=== PATIENT | female | born 1970 | race African-American/Black ===

== ENCOUNTER 2017-07-20 13:20 | Inpatient (IN) | payer BC ==
[~2017-07-20] VITALS: Ht 175.3 cm; Wt 86.2 kg
[2017-07-20] MEDS ORDERED: Morphine Sulfate 4mg/ml Inj IVP ONE (14:00)
[2017-07-20 14:38] LABS: APPEARANCE,URINE SLIGHTLY CLOUDY; KETONES,URINE 2+ (NEGATIVE); LEUKOCYTE ESTERASE ,URINE 3+ (NEGATIVE); NITRITE,URINE NEGATIVE (NEGATIVE); PH,URINE 7 (4.5-8.0); PROTEIN,URINE 1+ (NEGATIVE); UROBILINOGEN,URINE NORMAL MG/DL (0.0-1.0)
[2017-07-20 14:54] LABS: BACTERIA,URINE MODERATE /HPF; SQUAMOUS EPITHELIAL CELL,UR FEW /LPF (NONE/OCC); WBC,URINE 20-30 /HPF (0 - 2)
[2017-07-20] MEDS ORDERED: Tubing IV Secondary IV ONE (14:54)
[2017-07-20 14:58] LABS: MEAN CORPUSCULAR HEMOGLOBIN 23.5 PG (27.0-31.0); MEAN CORPUSCULAR VOLUME 76 FL (80-99); MEAN PLATELET VOLUME 7.3 FL (6.5-10.1); PLATELET COUNT 432 K/UL (150-450); RED BLOOD COUNT 4.67 M/UL (4.20-5.40); RED CELL DISTRIBUTION WIDTH 18.1 % (11.6-14.8)
[2017-07-20 15:05] LABS: ALANINE AMINOTRANSFERASE 13 U/L (12-78); ALBUMIN/GLOBULIN RATIO 0.6 (1.0-2.7); ANION GAP 10 mmol/L (5-15); ASPARTATE AMINO TRANSFERASE 11 U/L (15-37); CALCIUM 9.7 MG/DL (8.5-10.1); CARBON DIOXIDE 26 MMOL/L (21-32); CHLORIDE 98 MMOL/L (98-107); CREATININE 0.9 MG/DL (0.55-1.30); GLOMERULAR FILTRATION RATE > 60 mL/min (>60); POTASSIUM 4.1 MMOL/L (3.5-5.1); SODIUM 134 MMOL/L (136-145); TOTAL PROTEIN 8.5 G/DL (6.4-8.2)
[2017-07-20 15:15] LABS: INR 1.1 (0.9-1.1)
[2017-07-20] MEDS ORDERED: Cefepime HCl 2 GM in NS 110 ML IV SCH (15:15)
[2017-07-20] MEDS ORDERED: NS 1000ml 2,600 ML IVLG ONE (15:15)
--- NOTE | 2017-07-20 15:24 | Emergency Room Report ---
History of Present Illness General Chief Complaint: Pelvic Pain Source: Patient Present Illness HPI This patient presents with left lower quadrant and periumbilical abdominal pain. The patient states that these symptoms have been going on for the last 4 days. She has been followed by Dr. Downing for uterine fibroids. She underwent a fibroid embolization on June 23 of this year. She also underwent a D&C earlier this month. She is unable to remember the exact date. She states that she had been doing well until the past 4 days. She states that she has developed left lower abdominal pain and in addition to night sweats. She states that typically in the past she has been able to use extra strength ibuprofen for pain but this has not controlled the pain in her left lower abdomen. She has had vaginal discharge. She denies a foul odor to the discharge. She denies vaginal bleeding. She denies dysuria or hematuria. She denies nausea or vomiting. She has no other complaints. Allergies: Coded Allergies: PENICILLINS (Verified Allergy, Unknown, 07/20/17) Patient History Past Medical History: none, see triage record Past Surgical History: other - fibroid embolization Social History: Denies: smoking, alcohol use, drug use Last Menstrual Period: none since 06/23/17 (fibroid embolization) Now: No Reviewed Nursing Documentation: PMH: Agreed, PSxH: Agreed Review of Systems All Other Systems: negative except mentioned in HPI Physical Exam Vital Signs Date Time Temp Pulse Resp B/P (MAP) Pulse Ox O2 Delivery O2 Flow Rate FiO2 07/20/17 13:26 98.2 103 18 133/74 100 Room Air Sp02 EP Interpretation: reviewed, normal General Appearance: no apparent distress, alert, GCS 15, non-toxic Head: normocephalic, atraumatic Eyes: bilateral eye normal inspection, bilateral eye PERRL ENT: hearing grossly normal, normal pharynx, no angioedema, normal voice Neck: full range of motion, supple/symm/no masses Respiratory: chest non-tender, lungs clear, normal breath sounds, speaking full sentences Cardiovascular #1: regular rate, rhythm, no edema Gastrointestinal: normal bowel sounds, soft, tenderness - exquistely TTP in the LLQ Rectal: deferred Musculoskeletal: back normal, gait/station normal, normal range of motion, non- tender Neurologic: alert, oriented x3, responsive, motor strength/tone normal, sensory intact, speech normal Psychiatric: judgement/insight normal, memory normal, mood/affect normal, no suicidal/homicidal ideation Skin: normal color, no rash, warm/dry, well hydrated Medical Decision Making Diagnostic Impression: Primary Impression: Leukocytosis Additional Impression: UTI (urinary tract infection) ER Course This patient presents status post a D&C, in addition to status post embolization procedure done 3 weeks ago. The patient is an elevated white blood cell count 21,000. I am concerned this patient could have either endometritis or postoperative infection related to the fibroid embolization. CT of the abdomen and pelvis does show gas in the previously embolized fibroids. Further discussion with the radiologist and it is unusual to see gas this far out from the procedure. Patient was given broad-spectrum antibiotics and IV fluids. The patient is admitted for further evaluation and treatment by gynecology. Laboratory Tests Test 07/20/17 13:51 07/20/17 14:20 Urine Color Pale yellow Urine Appearance Slightly cloudy Urine pH 7 (4.5-8.0) Urine Specific [place] 1.010 (1.005-1.035) Urine Protein 1+ (NEGATIVE) H Urine Glucose (UA) Negative (NEGATIVE) Urine Ketones 2+ (NEGATIVE) H Urine Occult Blood 3+ (NEGATIVE) H Urine Nitrite Negative (NEGATIVE) Urine Bilirubin Negative (NEGATIVE) Urine Urobilinogen Normal MG/DL (0.0-1.0) Urine Leukocyte Esterase 3+ (NEGATIVE) H Urine RBC 2-4 /HPF (0 - 2) H Urine WBC 20-30 /HPF (0 - 2) H Urine Squamous Epithelial Cells Few /LPF (NONE/OCC) Urine Bacteria Moderate /HPF (NONE) H Urine HCG, Qualitative Negative White Blood Count 21.0 K/UL (4.8-10.8) H Red Blood Count 4.67 M/UL (4.20-5.40) Hemoglobin 11.0 G/DL (12.0-16.0) L Hematocrit 35.3 % (37.0-47.0) L Mean Corpuscular Volume 76 FL (80-99) L Mean Corpuscular Hemoglobin 23.5 PG (27.0-31.0) L Mean Corpuscular Hemoglobin Concent 31.0 G/DL (32.0-36.0) L Red Cell Distribution Width 18.1 % (11.6-14.8) H Platelet Count 432 K/UL (150-450) Mean Platelet Volume 7.3 FL (6.5-10.1) Neutrophils (%) (Auto) % (45.0-75.0) Lymphocytes (%) (Auto) % (20.0-45.0) Monocytes (%) (Auto) % (1.0-10.0) Eosinophils (%) (Auto) % (0.0-3.0) Basophils (%) (Auto) % (0.0-2.0) Neutrophils % (Manual) Pending Lymphocytes % (Manual) Pending Platelet Estimate Pending Platelet Morphology Pending Prothrombin Time 11.0 SEC (9.30-11.50) Prothrombin Time INR 1.1 (0.9-1.1) PTT 33 SEC (23-33) Sodium Level 134 MMOL/L (136-145) L Potassium Level 4.1 MMOL/L (3.5-5.1) Chloride Level 98 MMOL/L (98-107) Carbon Dioxide Level 26 MMOL/L (21-32) Anion Gap 10 mmol/L (5-15) Blood Urea Nitrogen 7 mg/dL (7-18) Creatinine 0.9 MG/DL (0.55-1.30) Estimate Glomerular Filtration Rate > 60 mL/min (>60) Glucose Level 95 MG/DL (74-106) Calcium Level 9.7 MG/DL (8.5-10.1) Total Bilirubin 0.3 MG/DL (0.2-1.0) Aspartate Amino Transferase (AST) 11 U/L (15-37) L Alanine Aminotransferase (ALT) 13 U/L (12-78) Alkaline Phosphatase 74 U/L (46-116) Total Protein 8.5 G/DL (6.4-8.2) H Albumin 3.1 G/DL (3.4-5.0) L Globulin 5.4 g/dL Albumin/Globulin Ratio 0.6 (1.0-2.7) L EKG Diagnostic Results Rate: normal Rhythm: NSR ST Segments: no acute changes Rhythm Strip Diag. Results EP Interpretation: yes Rate: 80's Rhythm: NSR, no PVC's, no ectopy CT/MRI/US Diagnostic Results CT/MRI/US Diagnostic Results : Imaging Test Ordered: CT abd/pelvis: Impression mpression: Hypoattenuating masses within enlarged uterus uterus, consistent with fibroids. Low-attenuation and presence of gas within is an expected finding immediately status post uterine fibroid embolization. However, the amount of gas present is somewhat greater than is usually seen and per discussion with the referring, the embolization procedure was 2 weeks previous. Possibly of infection should therefore be considered. 5 cm unilocular left ovarian cyst. Most likely a benign functional cyst. Correlation with prior imaging studies is recommended Small amount of fluid within the vaginal fornices, likely related to the above uterine process Diverticulosis. No evidence of diverticulitis Last Vital Signs Date Time Temp Pulse Resp B/P (MAP) Pulse Ox O2 Delivery O2 Flow Rate FiO2 07/20/17 13:26 98.2 103 18 133/74 100 Room Air Disposition: ADMITTED INPATIENT Condition: Serious Referrals: Blake Downing MD (PCP) KIRSTIE DENNIS D.O. Jul 20, 2017 15:24
[2017-07-20] MEDS ORDERED: Cefepime 2gm ONE (15:35)
[2017-07-20 16:25] LABS: ANISOCYTOSIS 1+; BAND NEUTROPHILS % (MANUAL) 2 % (0-8); HYPOCHROMASIA 1+; LYMPHOCYTES % (MANUAL) 12 % (20-45); NEUTROPHILS % (MANUAL) 80 % (45-75); TOTAL CELLS COUNTED 100
[2017-07-20 16:26] LABS: BASOPHILS % (MANUAL) 0 % (0-2); EOSINOPHILS % (MANUAL) 0 % (0-3); PLATELET ESTIMATE ADEQUATE; PLATELET MORPHOLOGY NORMAL
[2017-07-20] MEDS ORDERED: Hydromorphone 0.5mg/0.5ml inj IVP PRN ×2 (17:00)
[2017-07-20] MEDS ORDERED: Zolpidem 5mg tab ORAL PRN (17:00)
[2017-07-20 17:01] VITALS: BP 133/74
[2017-07-20] MEDS ORDERED: NKM (17:14)
[2017-07-20] MEDS ORDERED: HYDROmorphone 1mg/ml Carpuject IVP PRN (17:15)
--- NOTE | 2017-07-20 17:50 | Diagnostic Imaging Report ---
Clinical Indication: Abdominal pain Technique: No oral contrast utilized, per emergency room physician request IV administration nonionic contrast. Venous phase spiral acquisition obtained through the abdomen and pelvis. Multiplanar reconstructions were generated. Total dose length product 769 mGycm. CTDIvol(s) 14 mGy. Dose reduction achieved using automated exposure control Comparison: None Findings: The uterus is enlarged, contains multiple contiguous hypoattenuating nonenhancing masses which in aggregate measures approximately 9.1 x 7.7 x 13 cm length. Considerable gas bubbles are seen within the masses. Surrounding myometrium enhances normally. There is a left ovarian cyst which measures 5 cm in diameter. A small amount of fluid is seen within the vaginal fornices. The colon demonstrates diverticulosis. No evidence of diverticulitis. No evidence of colon wall thickening. The appendix is normal. Small bowel demonstrates normal caliber. No free or loculated intraperitoneal air or fluid is evident. The liver, gallbladder, bile ducts, pancreas, spleen, adrenals, kidneys are unremarkable. The included lung bases are clear. The bones are except for degenerative spondylosis at the lumbosacral junction. Impression: Hypoattenuating masses within enlarged uterus uterus, consistent with fibroids. Low-attenuation and presence of gas within is an expected finding immediately status post uterine fibroid embolization. However, the amount of gas present is somewhat greater than is usually seen and per discussion with the referring, the embolization procedure was 2 weeks previous. Possibly of infection should therefore be considered. 5 cm unilocular left ovarian cyst. Most likely a benign functional cyst. Correlation with prior imaging studies is recommended Small amount of fluid within the vaginal fornices, likely related to the above uterine process Diverticulosis. No evidence of diverticulitis Findings discussed by phone with Dr. Roche in the emergency room at the time of interpretation Findings also discussed by phone with Dr. Downing at the time of interpretation The CT scanner at [facility] is accredited by the [employer] and the scans are performed using protocols designed to limit radiation exposure to as low as reasonably achievable to attain images of sufficient resolution adequate for diagnostic evaluation.
[2017-07-20 18:30] VITALS: BP 149/61
[2017-07-20] MEDS: Potassium Chloride 20 MEQ in Dextrose 5%/Lactated Ringer's 1,000 ML IV SCH (18:52)
[2017-07-20 20:00] VITALS: BP 150/90
[2017-07-21] MEDS: Potassium Chloride 20 MEQ in Dextrose 5%/Lactated Ringer's 1,000 ML IV SCH ×3 (02:36→19:15)
[2017-07-21 04:00] VITALS: BP 133/81
[2017-07-21 05:43] LABS: BASOPHILS % (AUTO) 0.3 % (0.0-2.0); EOSINOPHILS % (AUTO) 0.3 % (0.0-3.0); LYMPHOCYTES % (AUTO) 7.4 % (20.0-45.0); MEAN CORPUSCULAR HEMOGLOBIN 23.2 PG (27.0-31.0); MEAN CORPUSCULAR HGB CONC 31.1 G/DL (32.0-36.0); MEAN CORPUSCULAR VOLUME 75 FL (80-99); MEAN PLATELET VOLUME 6.3 FL (6.5-10.1); MONOCYTES % (AUTO) 7.6 % (1.0-10.0); NEUTROPHILS % (AUTO) 84.3 % (45.0-75.0); PLATELET COUNT 420 K/UL (150-450); RED CELL DISTRIBUTION WIDTH 18.7 % (11.6-14.8); WHITE BLOOD COUNT 17.7 K/UL (4.8-10.8)
[2017-07-21 06:08] LABS: ALANINE AMINOTRANSFERASE 11 U/L (12-78); ALBUMIN/GLOBULIN RATIO 0.7 (1.0-2.7); ANION GAP 11 mmol/L (5-15); ASPARTATE AMINO TRANSFERASE 12 U/L (15-37); CALCIUM 8.5 MG/DL (8.5-10.1); CARBON DIOXIDE 26 MMOL/L (21-32); CHLORIDE 102 MMOL/L (98-107); CREATININE 0.9 MG/DL (0.55-1.30); GLOMERULAR FILTRATION RATE > 60 mL/min (>60); POTASSIUM 4.7 MMOL/L (3.5-5.1); SODIUM 138 MMOL/L (136-145); TOTAL PROTEIN 6.8 G/DL (6.4-8.2)
--- NOTE | 2017-07-21 07:58 | General Progress Note ---
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 results with patient Objective Last 24 Hour Vital Signs Date Time Temp Pulse Resp B/P (MAP) Pulse Ox O2 Delivery O2 Flow Rate FiO2 07/21/17 04:00 98.1 102 18 133/81 100 Room Air 07/20/17 20:00 99.5 107 18 150/90 98 Room Air 07/20/17 18:30 97.6 89 17 149/61 100 Room Air 07/20/17 17:30 98.2 78 18 133/74 100 Room Air 07/20/17 17:01 98.2 78 18 133/74 100 Room Air 07/20/17 13:26 98.2 103 18 133/74 100 Room Air Intake and Output 07/21/17 07/22/17 19:00 07:00 # Voids 2 Laboratory Tests 07/20/17 13:51: Urine Color Pale yellow, Urine Appearance Slightly cloudy, Urine pH 7, Urine Specific [place] 1.010, Urine Protein 1+H, Urine Glucose (UA) Negative, Urine Ketones 2+H, Urine Occult Blood 3+H, Urine Nitrite Negative, Urine Bilirubin Negative, Urine Urobilinogen Normal, Urine Leukocyte Esterase 3+H, Urine RBC 2- 4H, Urine WBC 20-30H, Urine Squamous Epithelial Cells Few, Urine Bacteria ModerateH, Urine HCG, Qualitative Negative 07/20/17 14:20: White Blood Count 21.0H, Red Blood Count 4.67, Hemoglobin 11.0L, Hematocrit 35.3L, Mean Corpuscular Volume 76L, Mean Corpuscular Hemoglobin 23.5L, Mean Corpuscular Hemoglobin Concent 31.0L, Red Cell Distribution Width 18.1H, Platelet Count 432, Mean Platelet Volume 7.3, Neutrophils (%) (Auto) , Lymphocytes (%) (Auto) , Monocytes (%) (Auto) , Eosinophils (%) (Auto) , Basophils (%) (Auto) , Differential Total Cells Counted 100, Neutrophils % ( Manual) 80H, Lymphocytes % (Manual) 12L, Monocytes % (Manual) 6, Eosinophils % ( Manual) 0, Basophils % (Manual) 0, Band Neutrophils 2, Platelet Estimate Adequate, Platelet Morphology Normal, Hypochromasia 1+, Anisocytosis 1+, Prothrombin Time 11.0, Prothromb Time International Ratio 1.1, Activated Partial Thromboplast Time 33, Sodium Level 134L, Potassium Level 4.1, Chloride Level 98, Carbon Dioxide Level 26, Anion Gap 10, Blood Urea Nitrogen 7, Creatinine 0.9, Estimat Glomerular Filtration Rate > 60, Glucose Level 95, Calcium Level 9.7, Total Bilirubin 0.3, Aspartate Amino Transf (AST/SGOT) 11L, Alanine Aminotransferase (ALT/SGPT) 13, Alkaline Phosphatase 74, Creatine Kinase MB < 0.5, Total Protein 8.5H, Albumin 3.1L, Globulin 5.4, Albumin/ Globulin Ratio 0.6L 07/20/17 17:00: Lactic Acid Level 1.10 07/21/17 05:30: White Blood Count 17.7H, Red Blood Count 4.60, Hemoglobin 10.7L, Hematocrit 34.3L, Mean Corpuscular Volume 75L, Mean Corpuscular Hemoglobin 23.2L, Mean Corpuscular Hemoglobin Concent 31.1L, Red Cell Distribution Width 18.7H, Platelet Count 420, Mean Platelet Volume 6.3L, Neutrophils (%) (Auto) 84.3H, Lymphocytes (%) (Auto) 7.4L, Monocytes (%) (Auto) 7.6, Eosinophils (%) (Auto) 0.3, Basophils (%) (Auto) 0.3, Sodium Level 138, Potassium Level 4.7, Chloride Level 102, Carbon Dioxide Level 26, Anion Gap 11, Blood Urea Nitrogen 4L, Creatinine 0.9, Estimat Glomerular Filtration Rate > 60, Glucose Level 109H, Calcium Level 8.5, Total Bilirubin 0.2, Aspartate Amino Transf (AST/SGOT) 12L, Alanine Aminotransferase (ALT/SGPT) 11L, Alkaline Phosphatase 77, Total Protein 6.8, Albumin 2.9L, Globulin 3.9, Albumin/Globulin Ratio 0.7L Height (Feet): 5 Height (Inches): 9.00 Weight (Pounds): 190 Objective WDWN NAD clear breath sounds bilaterally without rhonchi or wheeze [id number] without MRG NABS no HSM; LLQ tenderness with some improvement no CCE nonfocal SARA VILLEGAS Jul 21, 2017 07:57
[2017-07-21 08:00] VITALS: BP 137/83
--- NOTE | 2017-07-21 08:17 | History and Physical Report ---
DATE OF ADMISSION: 07/20/2017 RECENT FOR ADMISSION: Pelvic pain. HISTORY OF PRESENT ILLNESS: This is a 47-year-old female who presents with lower quadrant periumbilical abdominal pain. The patient noticed symptoms to be ongoing for 4 days. The patient does have a history of uterine fibroids and underwent a fibroid embolization on 06/23/2017. The patient has noted uncontrolled pain at this time. She denies any foul odor, but has had vaginal discharge. No bleeding noted. PAST MEDICAL HISTORY: Notable for the above. MEDICATIONS: Noted. ALLERGIES: Noted. SOCIAL HISTORY: Nonsmoker and nondrinker. The patient is otherwise independent. PHYSICAL EXAMINATION: GENERAL: A well-developed female, otherwise comfortable. VITAL SIGNS: Stable. Blood pressure 133/74, heart rate 103, and respiratory rate 18. HEENT: Negative. NECK: Supple. LUNGS: Clear overall. CARDIAC: Normal S1 and S2. Regular rate and rhythm. ABDOMEN: With some periumbilical tenderness. No distention. EXTREMITIES: No cyanosis, clubbing, or edema. LABORATORY DATA: Otherwise reviewed. Urinalysis with 2+ ketones, 3+ blood, and white cell count is 21. Electrolytes appeared to be fairly negative. IMPRESSION: 1. Leukocytosis, concern for sepsis. 2. Pelvic pain. 3. Uterine fibroids. 4. History of recent embolization. RECOMMENDATION: The patient started on pain control and antiemetics. We will start and continue IV hydration. Also continue with cefepime for now. Consider ID evaluation. We will obtain laboratory data for a.m. and monitor for any further change in interventions and we will optimize care pending reevaluation and hope for optimization. Odell Barboza M.D. DR: EDMUNDO JOB#: [id number] CC: ISABEL
[2017-07-21] MEDS: Naproxen 500mg tab ORAL PRN (08:46)
[2017-07-21 12:00] VITALS: BP_SYST 152; BP_SYST 153; BP_DIAS 78; BP_DIAS 90
--- NOTE | 2017-07-21 12:11 | General Surgery Progress Note ---
General Surgery-Progress Note Subjective Reason for Consult pelvic pain persists. Symptoms: pain same, tolerating diet, passing flatus Objective Last 24 Hour Vital Signs Date Time Temp Pulse Resp B/P (MAP) Pulse Ox O2 Delivery O2 Flow Rate FiO2 07/21/17 09:45 99.9 07/21/17 08:00 99.9 102 18 137/83 98 Room Air 07/21/17 04:00 98.1 102 18 133/81 100 Room Air 07/20/17 20:00 99.5 107 18 150/90 98 Room Air 07/20/17 18:30 97.6 89 17 149/61 100 Room Air 07/20/17 17:30 98.2 78 18 133/74 100 Room Air 07/20/17 17:01 98.2 78 18 133/74 100 Room Air 07/20/17 13:26 98.2 103 18 133/74 100 Room Air I&O Intake and Output 07/21/17 07/22/17 19:00 07:00 Intake Total 410 ml Balance 410 ml IV Total 410 ml # Voids 2 Dressing: dry Wound: clean Drains: none Cardiovascular: RSR Respiratory: clear Abdomen: soft, flat, tenderness, present bowel sounds Laboratory Tests Test 07/20/17 13:51 07/20/17 14:20 07/20/17 17:00 07/21/17 05:30 Urine Color Pale yellow Urine Appearance Slightly cloudy Urine pH 7 (4.5-8.0) Urine Specific [place] 1.010 (1.005-1.035) Urine Protein 1+ (NEGATIVE) H Urine Glucose (UA) Negative (NEGATIVE) Urine Ketones 2+ (NEGATIVE) H Urine Occult Blood 3+ (NEGATIVE) H Urine Nitrite Negative (NEGATIVE) Urine Bilirubin Negative (NEGATIVE) Urine Urobilinogen Normal MG/DL (0.0-1.0) Urine Leukocyte Esterase 3+ (NEGATIVE) H Urine RBC 2-4 /HPF (0 - 2) H Urine WBC 20-30 /HPF (0 - 2) H Urine Squamous Epithelial Cells Few /LPF (NONE/OCC) Urine Bacteria Moderate /HPF (NONE) H Urine HCG, Qualitative Negative White Blood Count 21.0 K/UL (4.8-10.8) H 17.7 K/UL (4.8-10.8) H Red Blood Count 4.67 M/UL (4.20-5.40) 4.60 M/UL (4.20-5.40) Hemoglobin 11.0 G/DL (12.0-16.0) L 10.7 G/DL (12.0-16.0) L Hematocrit 35.3 % (37.0-47.0) L 34.3 % (37.0-47.0) L Mean Corpuscular Volume 76 FL (80-99) L 75 FL (80-99) L Mean Corpuscular Hemoglobin 23.5 PG (27.0-31.0) L 23.2 PG (27.0-31.0) L Mean Corpuscular Hemoglobin Concent 31.0 G/DL (32.0-36.0) L 31.1 G/DL (32.0-36.0) L Red Cell Distribution Width 18.1 % (11.6-14.8) H 18.7 % (11.6-14.8) H Platelet Count 432 K/UL (150-450) 420 K/UL (150-450) Mean Platelet Volume 7.3 FL (6.5-10.1) 6.3 FL (6.5-10.1) L Neutrophils (%) (Auto) % (45.0-75.0) 84.3 % (45.0-75.0) H Lymphocytes (%) (Auto) % (20.0-45.0) 7.4 % (20.0-45.0) L Monocytes (%) (Auto) % (1.0-10.0) 7.6 % (1.0-10.0) Eosinophils (%) (Auto) % (0.0-3.0) 0.3 % (0.0-3.0) Basophils (%) (Auto) % (0.0-2.0) 0.3 % (0.0-2.0) Differential Total Cells Counted 100 Neutrophils % (Manual) 80 % (45-75) H Lymphocytes % (Manual) 12 % (20-45) L Monocytes % (Manual) 6 % (1-10) Eosinophils % (Manual) 0 % (0-3) Basophils % (Manual) 0 % (0-2) Band Neutrophils 2 % (0-8) Platelet Estimate Adequate Platelet Morphology Normal Hypochromasia 1+ Anisocytosis 1+ Prothrombin Time 11.0 SEC (9.30-11.50) Prothromb Time International Ratio 1.1 (0.9-1.1) Activated Partial Thromboplast Time 33 SEC (23-33) Sodium Level 134 MMOL/L (136-145) L 138 MMOL/L (136-145) Potassium Level 4.1 MMOL/L (3.5-5.1) 4.7 MMOL/L (3.5-5.1) Chloride Level 98 MMOL/L (98-107) 102 MMOL/L (98-107) Carbon Dioxide Level 26 MMOL/L (21-32) 26 MMOL/L (21-32) Anion Gap 10 mmol/L (5-15) 11 mmol/L (5-15) Blood Urea Nitrogen 7 mg/dL (7-18) 4 mg/dL (7-18) L Creatinine 0.9 MG/DL (0.55-1.30) 0.9 MG/DL (0.55-1.30) Estimat Glomerular Filtration Rate > 60 mL/min (>60) > 60 mL/min (>60) Glucose Level 95 MG/DL (74-106) 109 MG/DL (74-106) H Calcium Level 9.7 MG/DL (8.5-10.1) 8.5 MG/DL (8.5-10.1) Total Bilirubin 0.3 MG/DL (0.2-1.0) 0.2 MG/DL (0.2-1.0) Aspartate Amino Transf (AST/SGOT) 11 U/L (15-37) L 12 U/L (15-37) L Alanine Aminotransferase (ALT/SGPT) 13 U/L (12-78) 11 U/L (12-78) L Alkaline Phosphatase 74 U/L (46-116) 77 U/L (46-116) Creatine Kinase MB < 0.5 NG/ML (0.0-3.6) Total Protein 8.5 G/DL (6.4-8.2) H 6.8 G/DL (6.4-8.2) Albumin 3.1 G/DL (3.4-5.0) L 2.9 G/DL (3.4-5.0) L Globulin 5.4 g/dL 3.9 g/dL Albumin/Globulin Ratio 0.6 (1.0-2.7) L 0.7 (1.0-2.7) L Lactic Acid Level 1.10 mmol/L (0.66-2.22) Imaging CT of pelvis reviewed with radiology, abscess in myomata likely Plan Additional Comments sub total hysterectomy tomorrow. extensive discussion with patient concerning alternatives. patient accepts. Blake Downing MD Jul 21, 2017 12:11
[2017-07-21 15:51] VITALS: BP 153/78
[2017-07-21 20:00] VITALS: BP 144/95
[2017-07-22] VITALS (10 sets, daily range): BP systolic 130–156; BP diastolic 70–95
[2017-07-22] MEDS: Potassium Chloride 20 MEQ in Dextrose 5%/Lactated Ringer's 1,000 ML IV SCH ×4 (03:55→18:30)
[2017-07-22 06:52] LABS: MEAN CORPUSCULAR HEMOGLOBIN 24.5 PG (27.0-31.0); MEAN CORPUSCULAR HGB CONC 32.7 G/DL (32.0-36.0); MEAN CORPUSCULAR VOLUME 75 FL (80-99); MEAN PLATELET VOLUME 8.5 FL (6.5-10.1); PLATELET COUNT 369 K/UL (150-450); RED BLOOD COUNT 4.11 M/UL (4.20-5.40); RED CELL DISTRIBUTION WIDTH 18.1 % (11.6-14.8)
[2017-07-22 07:20] LABS: ALANINE AMINOTRANSFERASE 10 U/L (12-78); ALBUMIN/GLOBULIN RATIO 0.6 (1.0-2.7); ANION GAP 9 mmol/L (5-15); ASPARTATE AMINO TRANSFERASE 10 U/L (15-37); CALCIUM 8.9 MG/DL (8.5-10.1); CARBON DIOXIDE 26 MMOL/L (21-32); CHLORIDE 104 MMOL/L (98-107); CREATININE 0.8 MG/DL (0.55-1.30); GLOMERULAR FILTRATION RATE > 60 mL/min (>60); POTASSIUM 4.5 MMOL/L (3.5-5.1); SODIUM 139 MMOL/L (136-145); TOTAL PROTEIN 6.9 G/DL (6.4-8.2)
[2017-07-22 09:38] LABS: BAND NEUTROPHILS % (MANUAL) 0 % (0-8); BASOPHILS % (MANUAL) 0 % (0-2); EOSINOPHILS % (MANUAL) 1 % (0-3); LYMPHOCYTES % (MANUAL) 10 % (20-45); NEUTROPHILS % (MANUAL) 81 % (45-75); PLATELET ESTIMATE ADEQUATE; PLATELET MORPHOLOGY NORMAL; TOTAL CELLS COUNTED 100
[2017-07-22 09:39] LABS: ANISOCYTOSIS 2+; MICROCYTES 1+
[2017-07-22 09:40] LABS: HYPOCHROMASIA 1+
--- NOTE | 2017-07-22 11:49 | Anethesia Preoperative Eval ---
Anesthesia Pre-op PMH/ROS General Date of Evaluation: Jul 22, 2017 Anesthesiologist: Kb ASA Score: ASA 2 Mallampati Score Class I : Soft palate, uvula, fauces, pillars visible Class II: Soft palate, uvula, fauces visible Class III: Soft palate, base of uvula visible Class IV: Only hard plate visible Mallampati Classification: Class II Surgeon: [place] Diagnosis: Abd Pain Surgical Procedure: Sub Total Abdominal Hysterectomy Anesthesia History: none Family History: no anesthesia problems Allergies: Coded Allergies: PENICILLINS (Verified Allergy, Unknown, 07/20/17) Medications: see eMAR Past Medical History Cardiovascular: Reports: HTN Other: obesity - BMI 30 PSxH Narrative: Fibroid Embolization Anesthesia Pre-op Phys. Exam Physician Exam Last Vital Signs Date Time Temp Pulse Resp B/P (MAP) Pulse Ox O2 Delivery O2 Flow Rate FiO2 07/22/17 08:00 97.6 99 20 141/95 100 Room Air Constitutional: NAD Neurologic: CN 2-12 intact Cardiovascular: RRR Respiratory: CTA Gastrointestinal: S/NT/ND Airway Exam Mallampati Score: Class II MO: full ROM: limited Teeth: intact Anesthesia Pre-op A/P Labs Hematology Test 07/22/17 05:35 White Blood Count 17.0 K/UL (4.8-10.8) H Red Blood Count 4.11 M/UL (4.20-5.40) L Hemoglobin 10.1 G/DL (12.0-16.0) L Hematocrit 30.8 % (37.0-47.0) L Mean Corpuscular Volume 75 FL (80-99) L Mean Corpuscular Hemoglobin 24.5 PG (27.0-31.0) L Mean Corpuscular Hemoglobin Concent 32.7 G/DL (32.0-36.0) Red Cell Distribution Width 18.1 % (11.6-14.8) H Platelet Count 369 K/UL (150-450) Mean Platelet Volume 8.5 FL (6.5-10.1) Neutrophils (%) (Auto) % (45.0-75.0) Lymphocytes (%) (Auto) % (20.0-45.0) Monocytes (%) (Auto) % (1.0-10.0) Eosinophils (%) (Auto) % (0.0-3.0) Basophils (%) (Auto) % (0.0-2.0) Differential Total Cells Counted 100 Neutrophils % (Manual) 81 % (45-75) H Lymphocytes % (Manual) 10 % (20-45) L Monocytes % (Manual) 8 % (1-10) Eosinophils % (Manual) 1 % (0-3) Basophils % (Manual) 0 % (0-2) Band Neutrophils 0 % (0-8) Platelet Estimate Adequate Platelet Morphology Normal Hypochromasia 1+ Anisocytosis 2+ Microcytosis 1+ Chemistry Test 07/22/17 05:35 Sodium Level 139 MMOL/L (136-145) Potassium Level 4.5 MMOL/L (3.5-5.1) Chloride Level 104 MMOL/L (98-107) Carbon Dioxide Level 26 MMOL/L (21-32) Anion Gap 9 mmol/L (5-15) Blood Urea Nitrogen 3 mg/dL (7-18) L Creatinine 0.8 MG/DL (0.55-1.30) Estimat Glomerular Filtration Rate > 60 mL/min (>60) Glucose Level 117 MG/DL (74-106) H Calcium Level 8.9 MG/DL (8.5-10.1) Total Bilirubin 0.1 MG/DL (0.2-1.0) L Aspartate Amino Transf (AST/SGOT) 10 U/L (15-37) L Alanine Aminotransferase (ALT/SGPT) 10 U/L (12-78) L Alkaline Phosphatase 68 U/L (46-116) Total Protein 6.9 G/DL (6.4-8.2) Albumin 2.5 G/DL (3.4-5.0) L Globulin 4.4 g/dL Albumin/Globulin Ratio 0.6 (1.0-2.7) L Risk Assessment & Plan Assessment: ASA 2 Plan: GA, BIS, Glidescope Status Change Before Surgery: No Pre-Antibiotics Dru Gram Ancef IV Given Within 1 Hr of Incision: Yes Edward Quiles MD Jul 22, 2017 11:49
[2017-07-22] MEDS ORDERED: LR 1000ml 1,000 ML IVLG SCH (11:50)
--- NOTE | 2017-07-22 11:56 | Immediate Post-Op Evaluation ---
Immediate Post-Op Evalulation Immediate Post-Op Evalulation Procedure: Sub Total Abdominal Hysterectomy Date of Evaluation: Jul 22, 2017 Blood Products: 0 Pain Score (1-10): 2 Nausea: No Vomiting: No Complications 0 Patient Status: awake, reacts, patent, extubated, none Hydration Status: adequate Dru Gram Ancef IV Given Within 1 Hr of Incision: Yes Edward Quiles MD Jul 22, 2017 11:56
[2017-07-22] MEDS ORDERED: Ketorolac 30mg Inj IV PRN (12:00)
[2017-07-22] MEDS ORDERED: fentaNYL 100 mcg/2 mL IV PRN (12:00)
[2017-07-22] MEDS ORDERED: Norco 5mg/325mg tab ORAL PRN ×2 (12:00→17:00)
[2017-07-22] MEDS ORDERED: Neostigmine 1mg/ml 10ml Inj ONE ×2 (12:00→12:26)
[2017-07-22] MEDS ORDERED: DiphenhydrAMINE 50mg/ml Inj IVP PRN (12:00)
[2017-07-22] MEDS ORDERED: Ketorolac 60mg Inj IV PRN (12:00)
[2017-07-22] MEDS ORDERED: oxyCODONE HCL/Acetaminophen 5/325mg ORAL PRN (12:00)
[2017-07-22] MEDS ORDERED: LORazepam Inj 2mg/ml 1ml IV PRN (12:00)
[2017-07-22] MEDS ORDERED: Metoclopramide 10mg/2ml Inj IVP PRN (12:00)
[2017-07-22] MEDS ORDERED: Norco 7.5mg/325mg tab ORAL PRN (12:00)
[2017-07-22] MEDS ORDERED: Midazolam 2mg/2ml Inj IVP PRN (12:00)
[2017-07-22] MEDS ORDERED: Atropine Inj 1mg/10ml Syr IV PRN (12:00)
[2017-07-22] MEDS ORDERED: Hydromorphone 0.5mg/0.5ml inj IVP PRN ×2 (12:00→17:00)
[2017-07-22] MEDS ORDERED: LR 1000ml ONE (12:26)
[2017-07-22] MEDS ORDERED: Dexamethasone 4mg/ml vial ONE (12:26)
[2017-07-22] MEDS ORDERED: Metoprolol 5mg/5ml Inj ONE (12:26)
[2017-07-22] MEDS ORDERED: NS Irrig 1000ml ONE (12:26)
[2017-07-22] MEDS ORDERED: Lidocaine 1% Plain 30 ml INJ ONE (12:26)
[2017-07-22] MEDS ORDERED: Lidocaine 1% MPF 10mg/ml 5ml ONE (12:26)
[2017-07-22] MEDS ORDERED: Sterile Water Irrig 1000ml IRRIG ONE (12:26)
[2017-07-22] MEDS ORDERED: Zemuron 50mg/5ml Inj IV ONE (12:26)
[2017-07-22] MEDS ORDERED: Acetaminophen (Non formulary) 1,000 MG/100 ML ML IV ONE (12:30)
--- NOTE | 2017-07-22 12:33 | Pre-Procedure Note/Attestation ---
Pre-Procedure Note/Attestation Complete Prior to Procedure Planned Procedure: not applicable Procedure Narrative: sub total hysterectomy Indications for Procedure Pre-Operative Diagnosis: symptomatic myomata Attestation I attest that I discussed the nature of the procedure; its benefits; risks and complications; and alternatives (and the risks and benefits of such alternatives ), prior to the procedure, with the patient (or the patient's legal retail customer service representative). I attest that, if there was a reasonable possibility of needing a blood transfusion, the patient (or the patient's legal retail customer service representative) was given the [facility] standardized written summary, pursuant to the Donovan Darrius Blood Safety Act ([place] Health and Safety Code # 1645, as amended). I attest that I re-evaluated the patient just prior to the surgery and that there has been no change in the patient's H&P, Blake Downing MD Jul 22, 2017 12:33
[2017-07-22] MEDS ORDERED: Ropivacaine 5mg/ml Vial 30ml INJ ONE (12:54)
[2017-07-22] MEDS ORDERED: Bupivacaine w/Epi 0.75% 30ml Vial INJ ONE (12:59)
[2017-07-22] MEDS ORDERED: Interceed TOPIC ONE (13:38)
--- NOTE | 2017-07-22 14:01 | General Progress Note ---
Assessment/Plan Assessment/Plan fibroid s/p embolization leukocytosis chills possible sepsis- positive bacteremia likely abcess PLAN antibiotics add Vanco IV hydration check cultures pain control call for ID evaluation impression, plan, and exam edited and reviewed in detail care discussed with RN Subjective Allergies: Coded Allergies: PENICILLINS (Verified Allergy, Unknown, 07/20/17) Subjective (seen earlier) positive bcx 01/06 care noted reviewed results with surgery Objective Last 24 Hour Vital Signs Date Time Temp Pulse Resp B/P (MAP) Pulse Ox O2 Delivery O2 Flow Rate FiO2 07/22/17 08:00 97.6 99 20 141/95 100 Room Air 07/22/17 06:30 98.8 96 19 131/78 96 Room Air 07/22/17 04:00 99.1 96 18 142/91 96 Room Air 07/21/17 20:00 98.4 106 20 144/95 98 Room Air 07/21/17 15:51 98.1 97 20 153/78 100 Room Air Laboratory Tests 07/22/17 05:35: White Blood Count 17.0H, Red Blood Count 4.11L, Hemoglobin 10.1L, Hematocrit 30.8L, Mean Corpuscular Volume 75L, Mean Corpuscular Hemoglobin 24.5L, Mean Corpuscular Hemoglobin Concent 32.7, Red Cell Distribution Width 18.1H, Platelet Count 369, Mean Platelet Volume 8.5, Neutrophils (%) (Auto) , Lymphocytes (%) (Auto) , Monocytes (%) (Auto) , Eosinophils (%) (Auto) , Basophils (%) (Auto) , Differential Total Cells Counted 100, Neutrophils % ( Manual) 81H, Lymphocytes % (Manual) 10L, Monocytes % (Manual) 8, Eosinophils % ( Manual) 1, Basophils % (Manual) 0, Band Neutrophils 0, Platelet Estimate Adequate, Platelet Morphology Normal, Hypochromasia 1+, Anisocytosis 2+, Microcytosis 1+, Sodium Level 139, Potassium Level 4.5, Chloride Level 104, Carbon Dioxide Level 26, Anion Gap 9, Blood Urea Nitrogen 3L, Creatinine 0.8, Estimat Glomerular Filtration Rate > 60, Glucose Level 117H, Calcium Level 8.9, Total Bilirubin 0.1L, Aspartate Amino Transf (AST/SGOT) 10L, Alanine Aminotransferase (ALT/SGPT) 10L, Alkaline Phosphatase 68, Total Protein 6.9, Albumin 2.5L, Globulin 4.4, Albumin/Globulin Ratio 0.6L Height (Feet): 5 Height (Inches): 9.00 Weight (Pounds): 190 Objective WDWN NAD clear breath sounds bilaterally without rhonchi or wheeze [id number] without MRG NABS no HSM; LLQ tenderness with some improvement no CCE nonfocal SARA VILLEGAS Jul 22, 2017 14:01
--- NOTE | 2017-07-22 14:20 | Brief Operative Note ---
Immediate Post Operative Note Operative Note Pre-op Diagnosis: symptomatic myomata Procedure: sub total hysterectomy Post-op Diagnosis: same Surgeon: finesse Boat Master: pablo Anesthesiologist: andressa Specimen: yes Complications: none Condition: stable Fluids: 2 liters normal saline Estimated Blood Loss: volume - 200cc Drains: none Implant(s) used?: No Blake Downing MD Jul 22, 2017 14:20
--- NOTE | 2017-07-22 16:01 | Cardiology Report ---
APPROVED REPORT EKG Measurement Heart [id number] Normal sinus rhythm Normal ECG
[2017-07-22] MEDS ORDERED: Zolpidem 5mg tab ORAL PRN (17:00)
[2017-07-22] MEDS ORDERED: Norco 10mg/325mg tab ORAL PRN (17:00)
[2017-07-22] MEDS ORDERED: Milk of Magnesia 30ml Ud ORAL PRN (17:00)
[2017-07-22] MEDS: HYDROmorphone 1mg/ml Carpuject IVP PRN ×2 (17:42→22:55)
[2017-07-22] MEDS: Vancomycin 1250mg/D5W 250ml 250 ML IVPB SCH (17:56)
[2017-07-22] MEDS ORDERED: D5 1/2NS w/KCl 20mEq 1,000 ML IV SCH (18:00)
[2017-07-23] VITALS: BP 114/73
[2017-07-23] MEDS: Vancomycin 1250mg/D5W 250ml 250 ML IVPB SCH ×3 (01:00→18:13)
[2017-07-23] MEDS: Potassium Chloride 20 MEQ in Dextrose 5%/Lactated Ringer's 1,000 ML IV SCH ×3 (02:55→19:45)
[2017-07-23 04:00] VITALS: BP 126/80
[2017-07-23 07:18] LABS: MEAN CORPUSCULAR HEMOGLOBIN 23.6 PG (27.0-31.0); MEAN CORPUSCULAR VOLUME 74 FL (80-99); MEAN PLATELET VOLUME 7.1 FL (6.5-10.1); PLATELET COUNT 404 K/UL (150-450); RED CELL DISTRIBUTION WIDTH 18.3 % (11.6-14.8); WHITE BLOOD COUNT 18.9 K/UL (4.8-10.8)
[2017-07-23 07:40] LABS: IRON 11 ug/dL (50-175); TOTAL IRON BINDING CAPACITY 210 ug/dL (250-450)
[2017-07-23 07:48] LABS: ALANINE AMINOTRANSFERASE 9 U/L (12-78); ALBUMIN/GLOBULIN RATIO 0.5 (1.0-2.7); ANION GAP 10 mmol/L (5-15); ASPARTATE AMINO TRANSFERASE 10 U/L (15-37); CALCIUM 8.9 MG/DL (8.5-10.1); CARBON DIOXIDE 25 MMOL/L (21-32); CHLORIDE 103 MMOL/L (98-107); CREATININE 0.7 MG/DL (0.55-1.30); FERRITIN 106 NG/ML (8-388); GLOMERULAR FILTRATION RATE > 60 mL/min (>60); POTASSIUM 4.3 MMOL/L (3.5-5.1); SODIUM 138 MMOL/L (136-145); TOTAL PROTEIN 6.7 G/DL (6.4-8.2)
[2017-07-23 08:00] VITALS: BP 140/76
--- NOTE | 2017-07-23 08:55 | General Progress Note ---
Assessment/Plan Assessment/Plan fibroid s/p hysterectomy s/p embolization leukocytosis chills possible sepsis- positive bacteremia PLAN antibiotics add Vanco IV hydration check cultures pain control ID evaluation d/w surgery impression, plan, and exam edited and reviewed in detail care discussed with RN Subjective Allergies: Coded Allergies: PENICILLINS (Verified Allergy, Unknown, 07/20/17) Subjective (seen earlier) positive bcx 4/4 but coag neg staph care noted reviewed results with surgery NPO Objective Last 24 Hour Vital Signs Date Time Temp Pulse Resp B/P (MAP) Pulse Ox O2 Delivery O2 Flow Rate FiO2 07/23/17 04:00 97.8 81 17 126/80 99 Room Air 07/23/17 00:00 97.6 80 19 114/73 99 Room Air 07/22/17 20:00 97.7 85 17 130/82 100 Nasal Cannula 3.0 07/22/17 18:10 98.8 07/22/17 15:25 98.8 88 17 153/81 100 Nasal Cannula 3.0 07/22/17 15:25 98.8 07/22/17 15:25 98.8 07/22/17 15:10 87 14 156/77 100 Nasal Cannula 3.0 07/22/17 14:55 89 18 150/77 100 Nasal Cannula 3.0 07/22/17 14:45 91 26 151/78 100 Simple Mask 6.0 07/22/17 14:40 97 30 140/76 100 Simple Mask 6.0 07/22/17 14:36 98.7 95 30 141/70 100 Simple Mask 6.0 Laboratory Tests 07/23/17 06:15: White Blood Count 18.9H, Red Blood Count 4.00L, Hemoglobin 9.4L, Hematocrit 29.5L, Mean Corpuscular Volume 74L, Mean Corpuscular Hemoglobin 23.6L, Mean Corpuscular Hemoglobin Concent 32.0, Red Cell Distribution Width 18.3H, Platelet Count 404, Mean Platelet Volume 7.1, Neutrophils (%) (Auto) , Lymphocytes (%) (Auto) , Monocytes (%) (Auto) , Eosinophils (%) (Auto) , Basophils (%) (Auto) , Neutrophils % (Manual) [Pending], Lymphocytes % (Manual) [Pending], Platelet Estimate [Pending], Platelet Morphology [Pending], Sodium Level 138, Potassium Level 4.3, Chloride Level 103, Carbon Dioxide Level 25, Anion Gap 10, Blood Urea Nitrogen 6L, Creatinine 0.7, Estimat Glomerular Filtration Rate > 60, Glucose Level 154H, Calcium Level 8.9, Iron Level 11L, Total Iron Binding Capacity 210L, Percent Iron Saturation 5L, Unsaturated Iron Binding 199, Ferritin 106, Total Bilirubin 0.2, Aspartate Amino Transf (AST/SGOT ) 10L, Alanine Aminotransferase (ALT/SGPT) 9L, Alkaline Phosphatase 63, Total Protein 6.7, Albumin 2.3L, Globulin 4.4, Albumin/Globulin Ratio 0.5L Height (Feet): 5 Height (Inches): 9.00 Weight (Pounds): 190 Objective WDWN NAD clear breath sounds bilaterally without rhonchi or wheeze [id number] without MRG NABS no HSM; mild tenderness no CCE nonfocal SARA VILLEGAS Jul 23, 2017 08:55
[2017-07-23] MEDS: Naproxen 500mg tab ORAL PRN (08:58)
[2017-07-23] MEDS ORDERED: Iron Sucrose 100 MG in NS 55 ML IV SCH ×2 (09:00→21:00)
--- NOTE | 2017-07-23 09:00 | Operative Note - Dictated ---
DATE OF OPERATION: 07/22/2017 SURGEON: Blake Mayo M.D. TRANSMISSION BUILDER: Cristobal Love M.D. ANESTHESIA: General endotracheal and regional block. ANESTHESIOLOGIST: Edward Quiles M.D. PREOPERATIVE DIAGNOSES: Symptomatic leiomyoma of the uterus and necrotic myoma. POSTOPERATIVE DIAGNOSES: Symptomatic leiomyoma of the uterus and necrotic myoma. pelvic adhesions PROCEDURE: Subtotal hysterectomy (abdominal). lysis of adhesions ESTIMATED BLOOD LOSS: 200 mL. COMPLICATIONS: None. COUNTS: Sponge and needle count correct x2. INDICATIONS AND FINDINGS: This is a 47-year-old patient 3 weeks post normal uterine artery embolization with a history of sudden onset of pain, admitted with leukocytosis. A CT scan performed in the emergency room shows necrotic abscess within the uterus. The patient was taken to the operating room following extensive discussion of options. At the time of laparotomy, the patient's uterus had purulent material, which was cultured. Multiple myomata when the specimen was open, necrotic. The tubes and ovaries were grossly normal and left in as well as the cervix per the patient's request. DESCRIPTION OF PROCEDURE: Under general endotracheal anesthesia, the patient was prepped and draped and placed in the dorsal position. The abdomen was entered through a Pfannenstiel incision and the uterus was delivered through the incision. omental adhesions to the uterus were clamped cut and divided. The patient's hysterectomy was then performed. The round ligament was clamped, cut, and doubly ligated with #1 Vicryl suture. The peritoneum was taken down and the broad ligament was opened. The patient's clamp was placed proximal to the fallopian tube and ovary. It was clamped, cut, and doubly ligated. This procedure was repeated on the opposite side. The bladder flap was taken down sharply. The uterine artery was skeletonized, clamped, cut, and doubly ligated. The uterus was then cut free from the cervix. Interrupted sutures of #1 Vicryl was placed along the edge of the cervix. The patient's cervical canal was dilated. Necrotic material was appreciated. The endocervical canal was lavaged until clear and the endocervical canal was fulgurated to prevent bleeding. The abdomen was copiously irrigated and no bleeding points were seen. The abdomen was then closed following the normal sponge and needle count. The fascia was closed with interrupted and running sutures of #1 Vicryl. The subcutaneous tissue was closed with 3-0 plain suture. Skin was closed with skin clips and Steri-Strips. Urine was clear at the end of the case. The patient left the operating room in a stable condition. At my request, Dr. Quiles performed a regional block (TAPS) for postop pain control. Shira Mayo M.D. DR: NIKO JOB#: [id number] CC: ISABEL
--- NOTE | 2017-07-23 09:17 | 48 Hour Post Anesthesia Eval ---
Post Anesthesia Evaluation Procedure: Sub Total Abdominal Hysterectomy Date of Evaluation: Jul 23, 2017 Time of Evaluation: 09:20 Blood Pressure Systolic: 140 0: 63 Pulse Rate: 68 Respiratory Rate: 16 Temperature (Fahrenheit): 97 O2 Sat by Pulse Oximetry: 99 Airway: patent Nausea: No Vomiting: No Pain Intensity: 0 Hydration Status: adequate Mental Status/LOC: patient returned to baseline Follow-up care needed: patient intructions given Александр Toney M.D. Jul 23, 2017 09:17
[2017-07-23 09:21] LABS: ANISOCYTOSIS 1+; BAND NEUTROPHILS % (MANUAL) 0 % (0-8); BASOPHILS % (MANUAL) 0 % (0-2); EOSINOPHILS % (MANUAL) 0 % (0-3); HYPOCHROMASIA 1+; LYMPHOCYTES % (MANUAL) 7 % (20-45); MICROCYTES 1+; NEUTROPHILS % (MANUAL) 88 % (45-75); PLATELET ESTIMATE ADEQUATE; PLATELET MORPHOLOGY NORMAL; TOTAL CELLS COUNTED 100
[2017-07-23] MEDS ORDERED: Acetaminophen (Non formulary) 100 ML IV ONE ×2 (11:15→11:30)
[2017-07-23 12:00] VITALS: BP 134/93
--- NOTE | 2017-07-23 13:39 | Infectious Diseases Prog Note ---
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 uti, leukocytosis, fevers 2) pmh noted 3) allergies - pcn P) 1) vancomycin, cefepime and flagyl 2) check bc/ua/uc, labs 3) thank you Subjective Allergies: Coded Allergies: PENICILLINS (Verified Allergy, Unknown, 07/20/17) Objective Vital Signs Last 24 Hour Vital Signs Date Time Temp Pulse Resp B/P (MAP) Pulse Ox O2 Delivery O2 Flow Rate FiO2 07/23/17 12:00 97.7 80 18 134/93 98 Room Air 07/23/17 09:55 97.0 07/23/17 09:17 68 16 99 07/23/17 08:00 98.1 79 18 140/76 97 Room Air 07/23/17 04:00 97.8 81 17 126/80 99 Room Air 07/23/17 00:00 97.6 80 19 114/73 99 Room Air 07/22/17 20:00 97.7 85 17 130/82 100 Nasal Cannula 3.0 07/22/17 18:10 98.8 07/22/17 15:25 98.8 88 17 153/81 100 Nasal Cannula 3.0 07/22/17 15:25 98.8 07/22/17 15:25 98.8 07/22/17 15:10 87 14 156/77 100 Nasal Cannula 3.0 07/22/17 14:55 89 18 150/77 100 Nasal Cannula 3.0 07/22/17 14:45 91 26 151/78 100 Simple Mask 6.0 07/22/17 14:40 97 30 140/76 100 Simple Mask 6.0 07/22/17 14:36 98.7 95 30 141/70 100 Simple Mask 6.0 Height (Feet): 5 Height (Inches): 9.00 Weight (Pounds): 190 Microbiology Date/Time Source Procedure Growth Status 07/20/17 17:15 Blood Blood Culture - Preliminary Staphylococcus Sp Coag Neg Resulted 07/20/17 17:00 Blood Blood Culture - Preliminary Staphylococcus Sp Coag Neg Resulted 07/22/17 14:10 Other(Specify in comment) Gram Stain - Final Resulted 07/22/17 14:10 Other(Specify in comment) Aerobic Culture - Preliminary NO GROWTH Resulted 07/22/17 14:10 Other(Specify in comment) Anaerobic Culture Pending Resulted 07/22/17 13:00 Other(Specify in comment) Gram Stain - Final Resulted 07/22/17 13:00 Other(Specify in comment) Aerobic Culture - Preliminary NO GROWTH AFTER 24 HOURS Resulted 07/20/17 13:51 Urine,Clean Catch Urine Culture - Final Mixed Gram Positive Organism Complete Laboratory Tests Test 07/23/17 06:15 White Blood Count 18.9 K/UL (4.8-10.8) H Red Blood Count 4.00 M/UL (4.20-5.40) L Hemoglobin 9.4 G/DL (12.0-16.0) L Hematocrit 29.5 % (37.0-47.0) L Mean Corpuscular Volume 74 FL (80-99) L Mean Corpuscular Hemoglobin 23.6 PG (27.0-31.0) L Mean Corpuscular Hemoglobin Concent 32.0 G/DL (32.0-36.0) Red Cell Distribution Width 18.3 % (11.6-14.8) H Platelet Count 404 K/UL (150-450) Mean Platelet Volume 7.1 FL (6.5-10.1) Neutrophils (%) (Auto) % (45.0-75.0) Lymphocytes (%) (Auto) % (20.0-45.0) Monocytes (%) (Auto) % (1.0-10.0) Eosinophils (%) (Auto) % (0.0-3.0) Basophils (%) (Auto) % (0.0-2.0) Differential Total Cells Counted 100 Neutrophils % (Manual) 88 % (45-75) H Lymphocytes % (Manual) 7 % (20-45) L Monocytes % (Manual) 5 % (1-10) Eosinophils % (Manual) 0 % (0-3) Basophils % (Manual) 0 % (0-2) Band Neutrophils 0 % (0-8) Platelet Estimate Adequate Platelet Morphology Normal Hypochromasia 1+ Anisocytosis 1+ Microcytosis 1+ Sodium Level 138 MMOL/L (136-145) Potassium Level 4.3 MMOL/L (3.5-5.1) Chloride Level 103 MMOL/L (98-107) Carbon Dioxide Level 25 MMOL/L (21-32) Anion Gap 10 mmol/L (5-15) Blood Urea Nitrogen 6 mg/dL (7-18) L Creatinine 0.7 MG/DL (0.55-1.30) Estimat Glomerular Filtration Rate > 60 mL/min (>60) Glucose Level 154 MG/DL (74-106) H Calcium Level 8.9 MG/DL (8.5-10.1) Iron Level 11 ug/dL (50-175) L Total Iron Binding Capacity 210 ug/dL (250-450) L Percent Iron Saturation 5 % (15-50) L Unsaturated Iron Binding 199 ug/dL (112-346) Ferritin 106 NG/ML (8-388) Total Bilirubin 0.2 MG/DL (0.2-1.0) Aspartate Amino Transf (AST/SGOT) 10 U/L (15-37) L Alanine Aminotransferase (ALT/SGPT) 9 U/L (12-78) L Alkaline Phosphatase 63 U/L (46-116) Total Protein 6.7 G/DL (6.4-8.2) Albumin 2.3 G/DL (3.4-5.0) L Globulin 4.4 g/dL Albumin/Globulin Ratio 0.5 (1.0-2.7) L Current Medications Medications (Trade) Dose Ordered Sig/Greta Route PRN Reason Start Time Stop Time Status Last Admin Dose Admin Acetaminophen (Tylenol) 650 mg Q4H PRN ORAL FEVER 07/22/17 17:00 08/21/17 16:59 Acetaminophen/ Hydrocodone Bitart ([place] 10/325) 1 ea Q4H PRN ORAL Severe Pain (Pain Scale 7-10) 07/22/17 17:00 07/29/17 16:59 Acetaminophen/ Hydrocodone Bitart ([place] 5/325) 1 tab Q4H PRN ORAL Moderate Pain (Pain Scale 4-6) 07/22/17 17:00 07/29/17 16:59 Cefepime HCl 2 gm/ Dextrose 100 ml @ 200 mls/hr Q12HR IVPB 07/23/17 21:00 07/30/17 20:59 Hydromorphone HCl (Dilaudid) 0.5 mg Q3H PRN IVP Pain Score 1-3 07/22/17 17:00 07/29/17 16:59 Hydromorphone HCl (Dilaudid) 1 mg Q3H PRN IVP pain score 4-6 07/22/17 17:00 07/29/17 16:59 07/22/17 22:55 Hydromorphone HCl (Dilaudid) 2 mg Q3H PRN IVP pain score 7-10 07/22/17 17:00 07/29/17 16:59 Iron Sucrose 100 mg/Sodium Chloride 60 ml @ 240 mls/hr BEDTIME IV 07/23/17 09:00 07/27/17 21:14 07/23/17 09:48 Magnesium Hydroxide (Mom) 30 ml BIDPRN PRN ORAL Constipation 07/22/17 17:00 08/21/17 16:59 Metronidazole 100 ml @ 100 mls/hr Q12HR@0600,1800 IVPB 07/21/17 06:00 07/28/17 05:59 07/23/17 06:37 Naproxen (Naprosyn) 500 mg Q6HR PRN ORAL Pain Scale (6-10) 07/21/17 06:00 08/20/17 05:59 07/23/17 08:58 Ondansetron HCl (Zofran) 4 mg Q6H PRN IVP Nausea & Vomiting 07/22/17 17:00 08/21/17 16:59 Potassium Chloride 20 meq/ Dextrose/Lactated Ringer's 1,010 ml @ 120 mls/hr Q8H25M IV 07/22/17 18:30 08/21/17 18:29 07/22/17 18:30 Vancomycin HCl (Vanco rx to dose) 1 ea DAILY PRN MISC Per rx protocol 07/22/17 14:00 08/21/17 13:59 Vancomycin HCl/ Dextrose 250 ml @ 166.667 mls/hr Q8HR@0200,1000,1800 IVPB 07/22/17 18:00 07/27/17 17:59 07/23/17 11:18 Zolpidem Tartrate (Ambien) 5 mg DAILYPRN PRN ORAL Insomnia 07/22/17 17:00 07/29/17 16:59 GERHARD MONROE Jul 23, 2017 13:39
[2017-07-23 16:00] VITALS: BP 138/88
[2017-07-23 20:09] VITALS: BP 139/82
[2017-07-23] MEDS ORDERED: Hydromorphone 0.5mg/0.5ml inj IVP PRN (20:30)
[2017-07-24 00:24] VITALS: BP 123/77
[2017-07-24] MEDS: Potassium Chloride 20 MEQ in Dextrose 5%/Lactated Ringer's 1,000 ML IV SCH (00:53)
[2017-07-24] MEDS: Vancomycin 1250mg/D5W 250ml 250 ML IVPB SCH ×2 (01:10→09:37)
[2017-07-24 04:31] VITALS: BP 136/85
[2017-07-24 06:24] LABS: BASOPHILS % (AUTO) 0.4 % (0.0-2.0); EOSINOPHILS % (AUTO) 0.7 % (0.0-3.0); LYMPHOCYTES % (AUTO) 12.3 % (20.0-45.0); MEAN CORPUSCULAR HEMOGLOBIN 23.5 PG (27.0-31.0); MEAN CORPUSCULAR HGB CONC 31.7 G/DL (32.0-36.0); MEAN CORPUSCULAR VOLUME 74 FL (80-99); MEAN PLATELET VOLUME 6.7 FL (6.5-10.1); MONOCYTES % (AUTO) 6.9 % (1.0-10.0); NEUTROPHILS % (AUTO) 79.7 % (45.0-75.0); PLATELET COUNT 407 K/UL (150-450); RED BLOOD COUNT 3.73 M/UL (4.20-5.40); RED CELL DISTRIBUTION WIDTH 18.3 % (11.6-14.8); WHITE BLOOD COUNT 9.9 K/UL (4.8-10.8)
[2017-07-24 06:43] LABS: ALANINE AMINOTRANSFERASE 10 U/L (12-78); ALBUMIN/GLOBULIN RATIO 0.6 (1.0-2.7); ANION GAP 9 mmol/L (5-15); ASPARTATE AMINO TRANSFERASE 15 U/L (15-37); CALCIUM 8.7 MG/DL (8.5-10.1); CARBON DIOXIDE 25 MMOL/L (21-32); CHLORIDE 105 MMOL/L (98-107); CREATININE 0.8 MG/DL (0.55-1.30); GLOMERULAR FILTRATION RATE > 60 mL/min (>60); POTASSIUM 3.6 MMOL/L (3.5-5.1); SODIUM 139 MMOL/L (136-145); TOTAL PROTEIN 6.7 G/DL (6.4-8.2)
[2017-07-24 06:43] LABS: APPEARANCE,URINE CLEAR; KETONES,URINE NEGATIVE (NEGATIVE); LEUKOCYTE ESTERASE ,URINE NEGATIVE (NEGATIVE); NITRITE,URINE NEGATIVE (NEGATIVE); PH,URINE 7 (4.5-8.0); PROTEIN,URINE NEGATIVE (NEGATIVE); UROBILINOGEN,URINE NORMAL MG/DL (0.0-1.0)
[2017-07-24 08:00] VITALS: BP 133/78
--- NOTE | 2017-07-24 08:17 | General Progress Note ---
Assessment/Plan Assessment/Plan fibroid s/p hysterectomy s/p embolization leukocytosis chills possible sepsis- positive bacteremia PLAN antibiotics add Vanco ? dc IV hydration as needed check cultures pain control ID evaluation appreciated hope to dc in am with po antibiotics d/w surgery impression, plan, and exam edited and reviewed in detail care discussed with RN Subjective Allergies: Coded Allergies: PENICILLINS (Verified Allergy, Unknown, 07/20/17) Subjective bcx likely contaminant reviewed results with surgery started on clears Objective Last 24 Hour Vital Signs Date Time Temp Pulse Resp B/P (MAP) Pulse Ox O2 Delivery O2 Flow Rate FiO2 07/24/17 08:00 98.3 90 18 133/78 98 Room Air 07/24/17 04:31 97.9 88 16 136/85 100 Room Air 07/24/17 00:24 98.0 88 20 123/77 100 Room Air 07/23/17 20:09 97.7 82 17 139/82 100 Room Air 07/23/17 16:00 97.6 76 18 138/88 98 Room Air 07/23/17 12:00 97.7 80 18 134/93 98 Room Air 07/23/17 09:55 97.0 07/23/17 09:17 68 16 99 Laboratory Tests 07/23/17 17:20: Vancomycin Level Trough 14.2H 07/24/17 02:29: Urine Color Pale yellow, Urine Appearance Clear, Urine pH 7, Urine Specific [place] 1.005, Urine Protein Negative, Urine Glucose (UA) Negative, Urine Ketones Negative, Urine Occult Blood Negative, Urine Nitrite Negative, Urine Bilirubin Negative, Urine Urobilinogen Normal, Urine Leukocyte Esterase Negative 07/24/17 05:50: White Blood Count 9.9, Red Blood Count 3.73L, Hemoglobin 8.8L, Hematocrit 27.7L , Mean Corpuscular Volume 74L, Mean Corpuscular Hemoglobin 23.5L, Mean Corpuscular Hemoglobin Concent 31.7L, Red Cell Distribution Width 18.3H, Platelet Count 407, Mean Platelet Volume 6.7, Neutrophils (%) (Auto) 79.7H, Lymphocytes (%) (Auto) 12.3L, Monocytes (%) (Auto) 6.9, Eosinophils (%) (Auto) 0.7, Basophils (%) (Auto) 0.4, Sodium Level 139, Potassium Level 3.6, Chloride Level 105, Carbon Dioxide Level 25, Anion Gap 9, Blood Urea Nitrogen 4L, Creatinine 0.8, Estimat Glomerular Filtration Rate > 60, Glucose Level 141H, Calcium Level 8.7, Total Bilirubin 0.1L, Aspartate Amino Transf (AST/SGOT) 15, Alanine Aminotransferase (ALT/SGPT) 10L, Alkaline Phosphatase 58, Total Protein 6.7, Albumin 2.5L, Globulin 4.2, Albumin/Globulin Ratio 0.6L Height (Feet): 5 Height (Inches): 9.00 Weight (Pounds): 190 Objective WDWN NAD clear breath sounds bilaterally without rhonchi or wheeze [id number] without MRG NABS no HSM; mild tenderness no CCE nonfocal SARA VILLEGAS Jul 24, 2017 08:17
--- NOTE | 2017-07-24 08:30 | Consultation ---
DATE OF CONSULTATION: 07/23/2017 INFECTIOUS DISEASE CONSULTATION CONSULTING PHYSICIAN: Rina Todd M.D. ATTENDING PHYSICIAN: Blake Downing M.D. REFERRING PHYSICIAN: Odell Barboza M.D. I was asked by Dr. Odell Barboza, Internal Medicine to see this patient. REASON FOR CONSULTATION: Possible coagulase-negative Staph bacteremia, possible sepsis, leukocytosis, fevers, looks like uterine abscess, and necrotic myoma. REASON FOR ADMISSION: Abdominal pain and leukocytosis. HISTORY OF PRESENT ILLNESS: This is a very pleasant 47-year-old female, who comes in to [facility] with what looks like abdominal pain. The patient had periumbilical abdominal pain. The patient had history of uterine fibroids and status post embolization on 06/23/2017. She also had a dilatation and curettage earlier in the month. The patient over the last four days, she has had abdominal pain. She had left lower abdominal pain and night sweats. She had a CT scan of the abdomen and pelvis at [facility] ER when she was being seen in the ER and findings showed gas in the uterus that was more than usual for post uterine fibroid embolization. The patient was started on antibiotics. The patient had a hysterectomy yesterday on 07/22/2017. The patient was noted to have positive blood cultures and showing coagulase-negative Staph and it looks like it is 2/4 bottles. Urine culture was unrevealing. The patient came in with fevers and has leukocytosis. Sensitivities coagulase-negative Staph are pending. The patient is currently on vancomycin, cefepime, and Flagyl. Infectious Disease consultation is requested for antibiotic management. The case was discussed with the patient at length and the RN. See HPI. PAST MEDICAL HISTORY: She has history of uterine fibroids, status post embolization. She has a history of dilatation and curettage. No other past medical history such as diabetes or hypertension. MEDICATIONS: Upon reviewing the MAR, she is on the following medication. She is on cefepime. She is on iron. She is on potassium, vancomycin, Flagyl, hydromorphone, and Dilaudid. She is on Tylenol and Zofran. I also discussed with the patient. She states she was not on antibiotics. She has not taken antibiotics prior to admission, but I believe she was prescribed them per the patient. ALLERGIES: Include penicillin. She has tolerated cefepime well. SOCIAL HISTORY: Positive for smoking. No alcohol or drug use. FAMILY HISTORY: Noncontributory. REVIEW OF SYSTEMS: GENERAL: The patient came in with low-grade fevers and night sweats. No chills mentioned. HEAD AND NECK: No head pain or neck pain. No thrush or dysphagia. CARDIAC: No chest pain. GASTROINTESTINAL: No nausea, vomiting, or diarrhea. She did have abdominal pain, lower abdominal pain and periumbilical pain when she first came in. PULMONARY: No congestion or shortness of breath. : No significant dysuria mentioned. NEUROLOGIC: No seizures. SKIN: No rash. No weight loss mentioned. secretions. PHYSICAL EXAMINATION: VITAL SIGNS: T-max 99.9 degrees, presently temperature is 97.7 degrees. The patient's pulse rate 80, respiratory rate 18, blood pressure 134/93, saturation 98%, and heart rate has been as high as 111 on admission. GENERAL: Alert and responsive, in no acute distress. Nontoxic looking. HEAD AND NECK: Normocephalic. No facial droop. No neck stiffness. Neck is supple. HEART: Regular. No gallop or murmur. LUNGS: Clear bilaterally. ABDOMEN: Soft. Positive bowel sounds. No rebound. SKIN: No rash or dermatitis. MUSCULOSKELETAL: No effusion. Legs without cellulitis. PERIPHERAL VASCULAR: No cyanosis or gangrene. GENITOURINARY: No Martinez. No CVA tenderness. LINES: Line sites without phlebitis. NEUROLOGIC: Intact. Nonfocal. She has peripheral IV. No central line. No Martinez. LABORATORY AND DIAGNOSTIC DATA: Laboratory data is as follows: Creatinine on admission was 0.60. LFTs were noted. White count on admission was 21.0, hemoglobin 11.0, white count now is 18.9, and hemoglobin 9.4. UA had 3+ leukocyte esterase, 20 to 30 white blood cells, and moderate bacteria. Cultures grew out 2/4 coagulase-negative Staph. Urine culture with mixed organisms 30,000 to 40,000. culture so far is negative at [address] scan of the abdomen and pelvis showed gas that was more than usual, status post fibroid embolization, possible infection. Operative report was reviewed. ASSESSMENT AND PLAN: 1. The patient has positive blood culture coagulase-negative staphylococcus 2/. It is unclear if this is pathogen versus contaminant. She also comes in with what looks like symptomatic leiomyoma of the uterus and necrotic myoma and CT scan with gas and possible abscess and necrotic abscess within the uterus. The patient could be possibly septic with systemic inflammatory response syndrome criteria including elevated white count and fevers. It is unclear if she had urinary tract infection. Her urine culture is unrevealing, but she did have a positive urinalysis. At this time, we will continue vancomycin, cefepime, and Flagyl to cover coagulase-negative Staphylococcus in the blood and also polymicrobial coverage of the uterine infection. Continue vancomycin, cefepime, and Flagyl. Check followup blood cultures, UA, culture and sensitivity. Check followup labs. There is no evidence of shortness of breath, cough, or congestion to suggest pneumonia. Continue to monitor white cell count and temperatures. Case was discussed with the patient at length and questions were answered. 2. The patient has history of uterine fibroids, status post embolization. 3. The patient is status post dilatation and curettage. 4. The patient is anemic. 5. Pain management per primary team and surgery. 6. History of smoking. 7. Allergic to penicillin, tolerating cephalosporins. 8. Family history is noncontributory. 9. MAR was noted. 10. Case was discussed with RN. 11. Notes were reviewed. 12. Family history is noncontributory. 13. Continue treatment per primary consultants. 14. I will follow with you. Thank you, Dr. Barboza and Dr. Downing, for this consult. Rina Todd M.D. DR: Franck JOB#: [id number] CC:
[2017-07-24] MEDS ORDERED: Hydrogen Peroxide 473ml Bottle TOPIC ONE (11:00)
--- NOTE | 2017-07-24 11:08 | General Surgery Progress Note ---
General Surgery-Progress Note Subjective Day of Surgery: 2 Procedure Performed sub total hysterectomy Symptoms: improved, pain absent, tolerating diet Objective Last 24 Hour Vital Signs Date Time Temp Pulse Resp B/P (MAP) Pulse Ox O2 Delivery O2 Flow Rate FiO2 07/24/17 08:00 98.3 90 18 133/78 98 Room Air 07/24/17 04:31 97.9 88 16 136/85 100 Room Air 07/24/17 00:24 98.0 88 20 123/77 100 Room Air 07/23/17 20:09 97.7 82 17 139/82 100 Room Air 07/23/17 16:00 97.6 76 18 138/88 98 Room Air 07/23/17 12:00 97.7 80 18 134/93 98 Room Air Dressing: other - serous drainage, stable cbc Wound: clean, intact Drains: none Cardiovascular: RSR Respiratory: clear Abdomen: soft, flat, scaphoid, tenderness, present bowel sounds Extremities: no edema, no tenderness, no cyanosis Laboratory Tests Test 07/23/17 17:20 07/24/17 02:29 07/24/17 05:50 Vancomycin Level Trough 14.2 ug/mL (5.0-12.0) H Urine Color Pale yellow Urine Appearance Clear Urine pH 7 (4.5-8.0) Urine Specific [place] 1.005 (1.005-1.035) Urine Protein Negative (NEGATIVE) Urine Glucose (UA) Negative (NEGATIVE) Urine Ketones Negative (NEGATIVE) Urine Occult Blood Negative (NEGATIVE) Urine Nitrite Negative (NEGATIVE) Urine Bilirubin Negative (NEGATIVE) Urine Urobilinogen Normal MG/DL (0.0-1.0) Urine Leukocyte Esterase Negative (NEGATIVE) White Blood Count 9.9 K/UL (4.8-10.8) Red Blood Count 3.73 M/UL (4.20-5.40) L Hemoglobin 8.8 G/DL (12.0-16.0) L Hematocrit 27.7 % (37.0-47.0) L Mean Corpuscular Volume 74 FL (80-99) L Mean Corpuscular Hemoglobin 23.5 PG (27.0-31.0) L Mean Corpuscular Hemoglobin Concent 31.7 G/DL (32.0-36.0) L Red Cell Distribution Width 18.3 % (11.6-14.8) H Platelet Count 407 K/UL (150-450) Mean Platelet Volume 6.7 FL (6.5-10.1) Neutrophils (%) (Auto) 79.7 % (45.0-75.0) H Lymphocytes (%) (Auto) 12.3 % (20.0-45.0) L Monocytes (%) (Auto) 6.9 % (1.0-10.0) Eosinophils (%) (Auto) 0.7 % (0.0-3.0) Basophils (%) (Auto) 0.4 % (0.0-2.0) Sodium Level 139 MMOL/L (136-145) Potassium Level 3.6 MMOL/L (3.5-5.1) Chloride Level 105 MMOL/L (98-107) Carbon Dioxide Level 25 MMOL/L (21-32) Anion Gap 9 mmol/L (5-15) Blood Urea Nitrogen 4 mg/dL (7-18) L Creatinine 0.8 MG/DL (0.55-1.30) Estimat Glomerular Filtration Rate > 60 mL/min (>60) Glucose Level 141 MG/DL (74-106) H Calcium Level 8.7 MG/DL (8.5-10.1) Total Bilirubin 0.1 MG/DL (0.2-1.0) L Aspartate Amino Transf (AST/SGOT) 15 U/L (15-37) Alanine Aminotransferase (ALT/SGPT) 10 U/L (12-78) L Alkaline Phosphatase 58 U/L (46-116) Total Protein 6.7 G/DL (6.4-8.2) Albumin 2.5 G/DL (3.4-5.0) L Globulin 4.2 g/dL Albumin/Globulin Ratio 0.6 (1.0-2.7) L Additional Comments wbc normal today Assessment Post-op Diagnosis same Plan Additional Comments s/w ID consult, ok to discharge on augmentin and cipro, dressing change thursday Blake Downing MD Jul 24, 2017 11:08
[2017-07-24] MEDS ORDERED: CIPRO500 MG/51 PO (11:35)
[2017-07-24] MEDS ORDERED: AUGMENTIN 875-1 EAC1 ORAL (11:36)
--- NOTE | 2017-07-27 10:27 | Discharge Summary ---
Discharge Summary Hospital Course Date of Admission Jul 20, 2017 at 14:53 Date of Discharge Jul 24, 2017 at 12:40 Admitting Diagnosis uncontrolled post op pain HPI Nora Kimble is a 47 year old female who was admitted on Jul 20, 2017 at 14: 53 for Uncontrolled Post Operative Pain Hospital Course dc summary #[id number] Discharge Condition Upon Discharge: stable Discharge Disposition Patient was discharged to Home (01) Discharge Diagnoses: Discharge Instructions Discharge Instructions Special Instructions I have been assigned to complete a D/C Summary on this account. I was not involved in the patient management Leona Suárez NP (Vanchtein) Jul 27, 2017 10:27
--- NOTE | 2017-07-27 23:00 | Discharge Summary 2 SIG ---
DATE OF ADMISSION: 07/20/2017 DATE OF DISCHARGE: 07/24/2017 REASON FOR ADMISSION: 47-year-old female presented with lower quadrant periumbilical abdominal pelvic pain. She noted symptoms for four days. She reported chills. She had a history of uterine fibroids and recently undergone uterine artery embolization on 06/23/2017. The patient reported uncontrolled lower abdominal pain. She denied any foul odor, but reported vaginal discharge. No bleeding. Workup in the emergency room revealed WBC - 21. No fever. Urinalysis consistent with urinary tract infection. CT of the abdomen and pelvis revealed likely abscess in myomata. The patient was admitted for further management with possible sepsis, leukocytosis, pelvic pain, abscess in myomata, possible urinary tract infection. HOSPITAL COURSE: The patient was admitted. Surgery closely followed. The patient was on the IV fluids. ID consult requested. The patient started on empiric antibiotics. Urine culture revealed mixed gram-positive organism. Blood culture 11/08 revealed Staph coagulase-negative. The patient was on broad-spectrum antibiotics per ID management. Pain management was provided. The patient was on the IV fluids. Pain did not improve. Surgeon discussed with the patient different alternatives. On 07/22/2017, the patient subsequently undergone right total abdominal hysterectomy with lysis of adhesion. Course of recovery was uneventful. Initially still with leukocytosis, however, leukocytosis was trending down and resolved on 07/24/2017. Repeated blood culture were negative. No fever. The patient clinically improved. Pain controlled. Started on diet. Antiemetic provided as needed. Able to tolerate diet. The patient was stable for discharge on antibiotics, scripts provided. FINAL DIAGNOSES: 1. Possible sepsis. 2. Pelvic pain. 3. Uterine fibroids. 4. History of recent uterine artery embolization. 5. Symptomatic leiomyoma of the uterus and necrotic myoma. 6. Status post subtotal abdominal hysterectomy with lysis of adhesion. 7. Bacteremia Staph coagulase-negative, aerial versus contamination. DISCHARGE MEDICATIONS: The patient was given antibiotic script upon discharge. DISCHARGE INSTRUCTIONS: The patient was discharged home and follow up with the surgeon as outpatient as advised by surgeon. Odell Ishaaya, M.D. I have been assigned to dictate discharge summary on this account and I was not involved in the patient's management. Leona Suárez (Vanchtein) [email or web address] DR: EZEQUIEL JOB#: [id number] CC: ISABEL
== END 2017-07-24 12:40 | disposition home or self-care (01) | DRG 855 ==
LOC: EMR 14:29 → INTOOBSV 14:53 → OBSVTOIN 14:53 → 3E 14:53 → EDBEDREQ 15:06
PROC: 0UT90ZL Resection of Uterus, Supracervical, Open Approach (ICD-10-PCS; principal; 2017-07-22 13:00)
DX: A41.9 Sepsis, unspecified organism (principal); D25.9 Leiomyoma of uterus, unspecified; R10.2 Pelvic and perineal pain; N71.9 Inflammatory disease of uterus, unspecified; Z88.0 Allergy status to penicillin; D64.9 Anemia, unspecified; Z87.891 Personal history of nicotine dependence
CPT/HCPCS: 36415; 74177; 80053; 80202; 81003; 81025; 82553; 82728; 83540; 83550; 83605; 85007; 85025; 85610; 85730; 86850; 86900; 86901; 87040; 87070; 87075; 87086; 87181; 87205; 93005; 94003; 94150; 99285; J2405; J2710